=== PATIENT | male | born 2000 | race Caucasian/White ===

== ENCOUNTER 2018-04-01 21:40 | Emergency (ER) | payer BC ==
[2018-04-01] MEDS ORDERED: IBUPROFEN 200 MG TAB PO ONE (22:10)
--- NOTE | 2018-04-01 23:02 | RAD ---
EXAM DESCRIPTION: Mandible CLINICAL HISTORY: pain popping, clicking, previous trauma COMPARISON: None FINDINGS: Three views of the mandible were submitted. There is no acute fracture or dislocation. There is no radiopaque foreign body material. IMPRESSION: No acute fracture or dislocation. Electronically signed by: Samir Rodriguez MD 04/01/2018 11:01 PM CDT
--- NOTE | 2018-04-01 23:15 | ED.PDOC ---
History of Present Illness - General Chief Complaint: Dental/Mouth Stated Complaint: jaw pain, hit in area Time Seen by Provider: 04/01/18 22:04 Source: patient Exam Limitations: no limitations - History of Present Illness Initial Comments: the patient is a 17-year-old male presenting to the emergency room with family secondary to bilateral TMJ pain with the left being a little worse than the right. He did accidentally take a need to the chin today. He has had previous trauma to the jaw in the past. He does have a little bit of popping with opening the jaw to its extremes. There is no obvious misalignment. He does obviously have an upper respiratory tract infection with mild posterior oropharynx erythema as well as red nares bilaterally and red tympanic membranes he is febrile here today. He is alert and oriented and in no distress. There is no bruising and no laceration. Jaw alignment looks good. Teeth alignment looks good. Timing/Duration: 24 hours Severity: moderate Improving Factors: nothing Worsening Factors: nothing Associated Symptoms: denies symptoms Allergies/Adverse Reactions: Allergies NO KNOWN ALLERGY Allergy (Verified 04/01/18 22:01) Home Medications: Ambulatory Orders NK [NK] 04/01/18 Review of Systems - Review of Systems Constitutional: States: fever, malaise EENTM: States: see HPI, nose congestion Respiratory: States: no symptoms reported Cardiology: States: no symptoms reported Gastrointestinal/Abdominal: States: no symptoms reported Genitourinary: States: no symptoms reported Musculoskeletal: States: no symptoms reported Skin: States: no symptoms reported Neurological: States: no symptoms reported Endocrine: States: no symptoms reported All other Systems: No Change from Baseline Past Medical History (General) - Patient Medical History Hx Diabetes: No Hx MRSA: No Surgical History: no surgical history - Vaccination History Immunizations Up to Date: Yes - Triage Comment ED Triage Comment: Thinks jaw is dislocated, after being hit in jaw by friend while wrestling Family Medical History - Family History Mother Family History: Unknown Living Status: Still Living Physical Exam - Physical Exam General Appearance: Alert, No apparent distress Eye Exam: bilateral normal Ears, Nose, Throat: nasal congestion, pharyngeal erythema - mild, other - bilateral tympanic membranes are mildly red Neck: full range of motion, supple Respiratory: no respiratory distress, no accessory muscle use Cardiovascular/Chest: normal peripheral pulses, no edema, tachycardia - the patient is febrile Peripheral Pulses: radial,right: 2+, radial,left: 2+ Rectal Exam: deferred Extremity: normal range of motion, no pedal edema, normal capillary refill 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 He needs to keep himself well hydrated and use Motrin or Aleve to help keep the fever under control. Additionally this will help with his temporomandibular joint inflammation bilaterally. If the fevers go away and he is still having some significant discomfort in the temporomandibular joints then he can get set up with an ear nose and throat doctor for further evaluation. X-ray of the mandible here tonight shows no evidence of significant fracture or dislocation. ER warnings were given. Departure - Departure Clinical Impression: Viral upper respiratory infection Temporomandibular joint arthralgia Qualifiers: Laterality: bilateral Qualified Code(s): M26.623 - Arthralgia of bilateral temporomandibular joint Disposition: Discharge to Home or Self Care Condition: Fair Departure Forms: ED Discharge - Pt. Copy, Patient Portal Self Enrollment Instructions: Temporomandibular Joint (TMJ) Disorders (DC), Viral Upper Respiratory Infection, Adult (DC) Diet: regular diet Activity: increase activity as tolerated Referrals: Mike Rendon MD [Primary Care Provider] - 1-2 Weeks Home Medications: Ambulatory Orders NK [NK] 04/01/18 Additional Instructions: the patient is a 17-year-old male presenting to the emergency room with what appears to be a viral upper respiratory tract infection that has been going around with his family. He needs to keep himself well hydrated and use Motrin or Aleve to help keep the fever under control. Additionally this will help with his temporomandibular joint inflammation bilaterally. If the fevers go away and he is still having some significant discomfort in the temporomandibular joints then he can get set up with an ear nose and throat doctor for further evaluation. X-ray of the mandible here tonight shows no evidence of significant fracture or dislocation. ER warnings were given.
[2018-04-01 23:25] VITALS: BP 106/78; TEMP 99; O2SAT 99
== END 2018-04-01 23:25 | disposition home or self-care (01) ==
LOC: ER 21:40
DX: M26.623 Arthralgia of bilateral temporomandibular joint (principal); J06.9 Acute upper respiratory infection, unspecified; B34.9 Viral infection, unspecified

== ENCOUNTER → 2019-03-11 | Outpatient (CLI) | payer BC ==
--- NOTE | 2019-03-11 13:09 | RAD ---
EXAM DESCRIPTION: Shoulder,Right forearm x-ray Views CLINICAL HISTORY: Shoulder pain COMPARISON: None Available. TECHNIQUE: Four views of the right shoulder. FINDINGS: There is adequate internal and external rotation. Normal orientation on transscapular Y view and transaxillary view There is no fracture or dislocation. There are no significant degenerative changes observed. AC joint appears intact. No focal bone lesion. IMPRESSION: Negative for fracture or dislocation. Electronically signed by: Marques Sullivan MD 03/11/2019 1:07 PM CDT
--- NOTE | 2019-03-11 13:10 | RAD ---
EXAM DESCRIPTION: Clavicle,Right CLINICAL HISTORY: 18 years Male, Shoulder pain COMPARISON: None. FINDINGS: Right clavicle two x-ray views. No fracture. No lytic lesion. Normal sternoclavicular joint. Normal acromioclavicular joint. IMPRESSION: Negative. Electronically signed by: Marques Sullivan MD 03/11/2019 1:08 PM CDT
== END ==
LOC: RAD 11:32
PROVIDERS: ATTEND Orthopaedic Surgery
DX: M25.511 Pain in right shoulder (principal)